=== PATIENT | male | born 1975 | race Caucasian/White ===

== ENCOUNTER → 2018-01-17 | Outpatient (REF) ==
[~2018-01-17] MED LIST: AMOX-362 PO; AZIT500T47 PO; HYDR-4309 PO; LIDO15SO2 PO; OXYC-373 PO; PROM-110 PO
== END ==
LOC: RESP 20:59
PROVIDERS: ATTEND Emergency Medicine
DX: G47.33 Obstructive sleep apnea (adult) (pediatric) (principal); G47.36 Sleep related hypoventilation in conditions classified elsewhere

== ENCOUNTER 2018-05-21 01:35 | Day surgery (SDC) | payer OTHER ==
[~2018-05-21] VITALS: Ht 162.6 cm; Wt 85.3 kg
[2018-05-21] MEDS ORDERED: GLYCOPYRROLATE 0.2MG/ML 1 ML INJ IVP ONE (06:45)
[2018-05-21 07:25] VITALS: BP 122/70
[2018-05-21] MEDS ORDERED: NORMOSOL R SOLN(*) 1000 ML BAG 1,000 ML IV PRN (07:50)
[2018-05-21] MEDS ORDERED: LIDOCAINE/SOD BICARB 8.4% SYR ID ONE (07:50)
[2018-05-21] MEDS ORDERED: PROPOFOL EMUL(*) 10MG/ML 20 ML 60 ML ONE (08:08)
[2018-05-21] MEDS ORDERED: LIDOCAINE MPF 1% 5 ML VIAL ONE (08:08)
[2018-05-21] MEDS ORDERED: PROPOFOL EMUL(*) 10MG/ML 20 ML 20 ML ONE (09:28)
[2018-05-21 09:38] VITALS: BP 102/61
--- NOTE | 2018-05-21 09:47 | Short(Outpt) Discharge Summary ---
Discharge Summary Reason for Hosp/Final Diag: (1) Blood per rectum Status: Chronic Hospital Course & Plan: EGD with biopsies and colonoscopy with polypectomy x3 completed without problems. (2) Epigastric pain Status: Chronic (3) Obstipation Status: Chronic (4) Gastroesophageal reflux disease Status: Chronic Departure Discharge to: Home, Self Care Discharge Instructions Home Meds No Active Prescriptions or Reported Meds Diet: Regular Activity: As Tolerated Special Instructions: Your upper endoscopy and colonoscopy were completed without problems. Your esophagus, stomach, and duodenum appeared normal. I biopsied your stomach to look for H.pylori and your duodenum to look for celiac disease. I removed 3 polyps from your colon. All of these were sent to pathology. My office will call you in the next couple of days to schedule a follow up appointment to see me back in my office to discuss all of these results. ALTAGRACIA ROQUE MD May 21, 2018 09:47
[2018-05-21 10:00] VITALS: BP 121/67
[2018-05-21 10:30] VITALS: BP 124/69
[2018-05-21 10:40] VITALS: BP 125/76
== END 2018-05-21 10:50 | disposition home or self-care (01) ==
LOC: OR 01:35
PROVIDERS: ATTEND Surgery
DX: D12.5 Benign neoplasm of sigmoid colon (principal); K63.5 Polyp of colon
CPT/HCPCS: 00811; 43239; 45385; 87077; 88305; J2001; J2704; J3490

== ENCOUNTER 2018-12-16 01:38 | Observation (INO) | payer OTHER ==
[2018-12-08 16:40] LABS: PLATELET COUNT, AUTOMATED 301 K/uL (150-450)
[~2018-12-16] VITALS: Ht 165.1 cm; Wt 81.6 kg
[2018-12-16] VITALS (9 sets, daily range): BP systolic 110–135; BP diastolic 63–84
[~2018-12-16 01:38] MED LIST changes: +HYDR-2966 PO; -HYDR-4309 PO; +HYDR-653 PO
[2018-12-16] MEDS ORDERED: CLINDAMYCIN(*) 600 MG/NS 50 ML 50 ML IVPB ONE (05:35)
[2018-12-16] MEDS ORDERED: LEVOFLOXACIN/D5W 750 MG/150 ML 150 ML IVPB ONE (05:35)
--- NOTE | 2018-12-16 09:20 | EKG ---
[place] [facility] [place] NAME: PAMELLA MCLEAN : [id number] MR: [id number] V: [id number] EXAM DATE: ORDERING PHYSICIAN: KOSTAS CRISTOBAL TECHNOLOGIST: KEHINDE Gan Reason : PRE-OP Blood Pressure : / mmHG Vent. Rate : 076 BPM Atrial Rate : 076 BPM P-R Int : 178 ms QRS Dur : 084 ms QT Int : 386 ms P-R-T Axes : 028 019 027 degrees QTc Int : 434 ms Normal sinus rhythm Normal ECG When compared with ECG of 02-SEP-2015 21:02, No significant change was found Confirmed by JOANNE KC ([id number]) on 12/16/2018 6:50:45 PM Referred By: STUART Confirmed By:JOANNE KC
[2018-12-16] MEDS ORDERED: DEXAMETHASONE SOD PHOS 10MG/ML ONE (10:06)
[2018-12-16] MEDS ORDERED: ONDANSETRON 4 MG/2 ML VIAL ONE (10:06)
[2018-12-16] MEDS ORDERED: PROPOFOL EMUL(*) 10MG/ML 20 ML 40 ML ONE (10:06)
[2018-12-16] MEDS ORDERED: BUPIVACAINE/EPI 0.5% 50ML VIAL INFIL ONE (10:07)
[2018-12-16] MEDS ORDERED: fentaNYL CITR 100 MCG/2 ML AMP ONE ×3 (10:38→13:05)
[2018-12-16] MEDS ORDERED: MIDAZOLAM 2 MG/2 ML VIAL IVP PRN (11:20)
[2018-12-16] MEDS ORDERED: FAMOTIDINE 20 MG TAB PO ONE (11:20)
[2018-12-16] MEDS ORDERED: LIDOCAINE/SOD BICARB 8.4% SYR ID ONE (11:20)
[2018-12-16] MEDS ORDERED: NORMOSOL R SOLN(*) 1000 ML BAG 1,000 ML IV PRN (11:20)
[2018-12-16] MEDS ORDERED: KETOROLAC 30 MG/ML VIAL ONE (11:37)
[2018-12-16] MEDS ORDERED: SUGAMMADEX SOD 200 MG/2 ML SDV ONE (11:51)
[2018-12-16] MEDS ORDERED: TRAM-420 PO (12:31)
--- NOTE | 2018-12-16 12:33 | Short(Outpt) Discharge Summary ---
Discharge Summary Reason for Hosp/Final Diag: (1) Right inguinal hernia Hospital Course & Plan: pr presented for hernia repair. he tolerated the procedure well. he will be discharged home when criteria met. Departure Discharge to: Home Discharge Instructions Home Meds Active Scripts Tramadol Hcl (TRAMADOL HCL) 50 Mg Tablet, 50 MG PO Q6H PRN for PAIN, #20 TAB Prov:EVARISTO COLEMAN 12/16/18 Reported Medications Hydrochlorothiazide (HYDROCHLOROTHIAZIDE) 25 Mg Tablet, 1 TAB PO QDAY, TAB 12/15/18 Diet: Regular Activity: No Heavy Lifting Special Instructions: no lifting more than 15 lbs for 3 wks. ok to shower tomorrow. take stool softeners while taking pain meds. follow up dr. hilario coleman 2 wks ([phone]). EVARISTO COLEMAN Dec 16, 2018 12:33
--- NOTE | 2018-12-16 12:36 | Post Operative Progress Note ---
Post Operative Progress Note Date: Dec 16, 2018 Time: 12:34 Surgeon: dr. destiny coleman Livestock Handler: none Anesthesia: gen, local dr. valles Pre-Op Diagnosis: right ing hernia Post-Op Diagnosis: same Findings: right ing hernia Procedure(s): robotic right ing hernia repair with mesh Specimen Removed:(May be N/A): n/a Complications: none Fluids: iv crystalloid Estimated Blood Loss: minimal EVARISTO COLEMAN Dec 16, 2018 12:35
[2018-12-16] MEDS ORDERED: traMADol 50 MG TAB PO ONE (14:40)
--- NOTE | 2018-12-16 15:45 | NUR ---
SPOKE WITH DR CRISTOBAL ABOUT PT'S O2 NEEDS, PT WILL NEED TO BE ADMITTED OVERNIGHT FOR OBSERVATION PER DR CRISTOBAL. DR CRISTOBAL TO CONSULT WITH DR DAVIDSON AND HAVE PT ADMITTED. NURSING SPLICING TECHNICIAN CONTACTED, ROOM NOT AVAILABLE YET, FLOOR WILL CONTACT US WHEN PT CAN BE TRANSFERRED, PT WILL BE HELD IN STEPDOWN UNTIL ROOM AVAILABLE.
[2018-12-16] MEDS ORDERED: ONDANSETRON 4 MG/2 ML VIAL IVP PRN (17:10)
[2018-12-16] MEDS ORDERED: NS(*) 0.9% 1000 ML BAG 1,000 ML IV SCH (17:10)
--- NOTE | 2018-12-16 18:31 | NUR ---
PT TRANSFERRED TO INPT ROOM 2274 VIA CART, AT BEDSIDE, ALL BELONGINGS WITH PT. PT AMBULATED TO BED FROM CART W/O DIFFICULTY. SITTING AT EDGE OF BED, REPORTS SITTING IS POSITION OF COMFORT AT THIS TIME. SBAR AND TRANSFER OF CARE TO VARUN AUGUSTIN.
[2018-12-16] MEDS: APAP/HYDROCODONE 325/7.5 TAB PO PRN ×2 (18:35→22:33)
[2018-12-16] MEDS: ALBUTEROL/IPRATROPIUM 3 ML NEB NEB SCH (20:15)
[2018-12-16] MEDS ORDERED: HYPROMELLOSE 0.4% LUB 15ML BTL OU PRN (20:15)
--- NOTE | 2018-12-16 20:33 | Hospitalist Consultation ---
History of Present Illness Requesting Physician Oneil Reason for Consult hypoxia History of Present Illness 43yo male with a h/o CYN and chronic tobacco use who has been persistently hypoxic after surgery. He denies any cp/sob/coryza/cough before surgery or now. He is supposed to be on a CPAP machine at night, but hasn't been able to find a mask that fits well. He smokes 4-5 cigarettes a day and has smoked for about 20 years. He has noted some bilateral eye burning and saw red blotches in the lower parts of both eyes after surgery. History Problems: (1) CYN (obstructive sleep apnea) Status: Chronic Home Meds Active Scripts Tramadol Hcl (TRAMADOL HCL) 50 Mg Tablet, 50 MG PO Q6H PRN for PAIN, #20 TAB Prov:EVARISTO DAVIDSON 12/16/18 Reported Medications Hydrochlorothiazide (HYDROCHLOROTHIAZIDE) 25 Mg Tablet, 1 TAB PO QDAY, TAB 12/15/18 Allergies: Coded Allergies: Penicillins (Verified Allergy, Intermediate, HIVES AND SHORTNESS OF BREATH, 05/14/18) Patient History: FH: diabetes mellitus MOTHER, , Age:74 FH: hypercholesterolemia FATHER FH: thyroid disease BROTHER OR SISTER Hx Smoking: Yes (4 CIGS A DAY) Smoking Status: Current: Every Day Smoker Exposure to Second Hand Smoke?: Yes Caffeine Intake: Coffee Caffeine/Cups Per Day: 1 Hx Alcohol Use: Yes Hx Substance Use Disorder: No Social Drug Use: Never Review of Systems All Systems Reviewed/Normal: Yes, Except as Noted Exam Vital Signs Vital Signs Date Time Temp Pulse Resp B/P (MAP) Pulse Ox O2 Delivery O2 Flow Rate FiO2 12/16/18 19:23 98.0 95 20 120/72 (88) 93 Nasal Cannula 1.5 General Appearance: Alert, Awake, No Acute Distress Eyes: Other (sclera inferiorly has ) Cardiovascular: Regular Rate and Rhythm Respiratory: Clear to Auscultation Extremities: No Edema Medical Decision Making Data Points Result Diagram: 12/16/18 0913 Assessment and Plan Problems: (1) Status post hernia repair Status: Acute Assessment & Plan: No chest pain/sob. No CV/pulmonary issues during surgery. He received about 2000cc of crystalloid intra-op. See below. (2) Hypoxia Status: Acute Assessment & Plan: No worrisome symptoms. Lungs clear. Secondary to CYN, chronic tobacco use, narcotics, abdominal surgery and recent anesthetics. He is only requiring 1 liter of O2. Will likely be able to wean off in the morning. He is to use the IS. Will get a CXR to rule out any infiltrates. (3) Subconjunctival hemorrhage of both eyes Status: Acute Assessment & Plan: Likely, had some minor trauma during surgery. Mild and inferior bilaterally. He reports mild burning. Will try some natural tears prn and follow. (4) CYN (obstructive sleep apnea) Status: Chronic Assessment & Plan: Chronic and not treated yet secondary to problems with getting masks that don't make him feel claustrophobic. Copies to: EVARISTO DAVIDSON ; Venous Thromboembolism Antithrombotics Is Pt On Any Antithrombotics?: No JOANNE KC MD Dec 16, 2018 20:33
--- NOTE | 2018-12-16 23:29 | RADIOLOGY IMAGING REPORT ---
[place]AC[place] [facility] [place] NAME: Donny Urias : 1975 MR: [id number] V: [id number] EXAM DATE: ORDERING PHYSICIAN: JOANNE KC TECHNOLOGIST: Location: [facility] [place] Patient: Donny Urias : 1975 Visit/Account:[id number] Date of Sevice: 12/16/2018 CHEST SINGLE AP 12/16/2018 20:12 hours. HISTORY: Hypoxia. COMPARISON: None. TECHNIQUE: Portable AP view of the chest. FINDINGS: Tubes/lines/hardware: None. Pulmonary/pleura: Lungs are clear. There is no pneumothorax or pleural effusion. Cardiomediastinal: Cardiac and mediastinal silhouettes are within normal limits. Bones/soft tissues: No acute osseous abnormality. Healed mid left clavicle fracture. The visible abdo men is normal. IMPRESSION: 1. No acute cardiopulmonary process. Report Dictated By: Bri Davis at 12/16/2018 11:23 PM Report E-Signed By: Bri Davis at 12/16/2018 11:25 PM WSN:[id number]
[2018-12-17 00:19] VITALS: BP 114/61
[2018-12-17 03:33] VITALS: BP 104/56
[2018-12-17] MEDS: APAP/HYDROCODONE 325/7.5 TAB PO PRN ×2 (03:33→07:52)
[2018-12-17] MEDS: ALBUTEROL/IPRATROPIUM 3 ML NEB NEB SCH (05:06)
[2018-12-17 07:46] VITALS: BP 121/77
--- NOTE | 2018-12-17 08:35 | Hospitalist Progress Note ---
Subjective Progress Notes Subjective No cp/sob. Off O2. Physical Exam Vital Signs Date Time Temp Pulse Resp B/P (MAP) Pulse Ox O2 Delivery O2 Flow Rate FiO2 12/17/18 07:56 92 Room Air 12/17/18 07:46 98.3 78 16 121/77 (92) 12/17/18 05:00 0.5 Intake and Output 12/17/18 07:00 Intake Total 2125 ml Balance 2125 ml Intake Oral 900 ml IV Total 1225 ml # Voids 1 General Appearance: Alert, Awake, No Acute Distress Result Diagram: 12/16/18 0913 Imaging CXR - 1. No acute cardiopulmonary process. Assessment and Plan Problems: (1) Hypoxia Status: Acute Assessment & Plan: No worrisome symptoms. Lungs clear. CXR normal. Secondary to CYN, chronic tobacco use, narcotics, abdominal surgery and recent anesthetics. He is now off O2 and doing well. (2) Status post hernia repair Status: Acute Assessment & Plan: No chest pain/sob. No CV/pulmonary issues during surgery. He received about 2000cc of crystalloid intra-op. See below. (3) Subconjunctival hemorrhage of both eyes Status: Acute Assessment & Plan: Likely, had some minor trauma during surgery. Mild and inferior bilaterally. He reports mild burning. Will try some natural tears prn and follow. (4) CYN (obstructive sleep apnea) Status: Chronic Assessment & Plan: Chronic and not treated yet secondary to problems with ge tting masks that don't make him feel claustrophobic. Exam Sepsis Risk: No Definite Risk JOANNE KC MD Dec 17, 2018 08:35
[2018-12-17] MEDS ORDERED: ENOXAPARIN 40 MG/0.4ML SYR SC SCH (09:00)
[2018-12-17 09:02] VITALS: BMI 29.9
--- NOTE | 2018-12-17 10:21 | General Surgery Progress Note ---
Subjective Progress Notes Subjective s/p hernia repair. pain controlled. no sob or chest pain. Physical Exam Vital Signs Date Time Temp Pulse Resp B/P (MAP) Pulse Ox O2 Delivery O2 Flow Rate FiO2 12/17/18 07:56 92 Room Air 12/17/18 07:46 98.3 78 16 121/77 (92) 12/17/18 05:00 0.5 Intake and Output 12/17/18 07:00 Intake Total 2125 ml Balance 2125 ml Intake Oral 900 ml IV Total 1225 ml # Voids 1 Cardiovascular: Other (reg rate) Respiratory: No Respiratory Distress GI: Other (abd soft) Result Diagram: 12/16/18 0913 Assessment and Plan Problems: (1) Right inguinal hernia Assessment & Plan: 12/16/18: pt presented for hernia repair. he tolerated the procedure well. he will be discharged home when criteria met. 12/17/18: doing well. no sob. d/c home when weaned off oxygen. Exam Sepsis Risk: No Definite Risk EVARISTO DAVIDSON Dec 17, 2018 10:21
--- NOTE | 2018-12-17 10:24 | Hospitalist Depart ---
Discharge Summary Reason for Hosp/Final Diag: (1) Right inguinal hernia Hospital Course & Plan: 12/16/18: pt presented for hernia repair. he tolerated the procedure well. he will be discharged home when criteria met. 12/17/18: doing well. no sob. d/c home when weaned off oxygen. Departure Weight (Pounds): 180 Result Diagram: 12/16/18 0913 Condition: Improved Discharge Instructions Home Meds Active Scripts Tramadol Hcl (TRAMADOL HCL) 50 Mg Tablet, 50 MG PO Q6H PRN for PAIN, #20 TAB Prov:EVARISTO RIGGS 12/16/18 Reported Medications Hydrochlorothiazide (HYDROCHLOROTHIAZIDE) 25 Mg Tablet, 1 TAB PO QDAY, TAB 12/15/18 Diet: Regular Activity: No Heavy Lifting Special Instructions: No lifting more than 15 lbs for 3 weeks. Ok to shower tomorrow. Take stool softeners while taking pain meds. Follow up Dr. Avery Riggs in 2 weeks ([phone]). Venous Thromboembolism Antithrombotics Is Pt On Any Antithrombotics?: EVARISTO Hoskins Dec 17, 2018 10:24
[2018-12-17 14:29] VITALS: Ht 165.1 cm; Wt 81.6 kg
--- NOTE | 2018-12-18 08:45 | OPERATIVE REPORT 1 ---
EVENT DATE: December 16, 2018 SURGEON: Oliver Riggs MD ANESTHESIOLOGIST: Ruslan Alvarez MD ANESTHESIA: General and local. PERSONNEL RESEARCH SCIENTIST: None. PREOPERATIVE DIAGNOSIS Right inguinal hernia. POSTOPERATIVE DIAGNOSIS Right inguinal hernia. PROCEDURE PERFORMED Robotic right inguinal hernia repair with mesh. FLUIDS IV crystalloids. ESTIMATED BLOOD LOSS Minimal. SPECIMENS None. COMPLICATIONS None. INDICATIONS This is a 43-year old male with discomfort in his right groin. On physical exam, patient is found to have a right inguinal hernia. Risks and benefits of the procedure were explained and consent was signed. DESCRIPTION OF PROCEDURE The patient was taken to the operating room and placed in the supine position. General anesthesia was administered per the Anesthesia team. The patient was prepped and draped in normal sterile fashion. Local anesthesia was injected into the dermis above the umbilicus and a small incision was made. Umbilical stump was grasped and elevated. Veress needle was inserted. Pneumoperitoneum was achieved. Veress needle was removed. An 8 mm port was placed. After injecting local analgesia and under direct vision, an 8 mm right sided port and an 8 mm left sided port were placed. The robot was docked. I inspected the abdomen. There was no injury upon entry. Patient had a direct right inguinal hernia. A peritoneal flap was created with scissors. This was taken down below the level of the ileopubic tract. Earnest's ligament was identified. The hernia was reduced. This was a medium sized direct inguinal hernia. I then placed a piece of 15 x 10 ProGrip right sided mesh. This covered the defect with several centimeters of overlap in each direction. I confirmed that the mesh was laying flat. Care had been taken to protect the cord structures in the inferior epigastric vessels during the dissection. The peritoneal flap was reapproximated with a running absorbable V-Loc stitch. Hemostasis was assured. Robot was undocked. Tap-Loc was placed. Ports were removed under direct vision. Pneumoperitoneum was released. Final port was removed. All skin incisions were closed with 4-0 Monocryl subcuticular stitches. More local analgesia was injected. Appropriate dressings were applied. The patient tolerated the procedure well. There were no complications. [facility]
[2018-12-19] MEDS ORDERED: TRAM-420 PO (17:00)
== END 2018-12-17 10:23 | disposition home or self-care (01) ==
LOC: OR 01:38 → MED 18:25
PROVIDERS: ADMIT Surgery; ATTEND Surgery
DX: K40.90 Unilateral inguinal hernia, without obstruction or gangrene, not specified as recurrent (principal); E78.5 Hyperlipidemia, unspecified; G47.30 Sleep apnea, unspecified; F17.200 Nicotine dependence, unspecified, uncomplicated; I10 Essential (primary) hypertension
CPT/HCPCS: 36415; 49650; 71045; 85025; 93005; 94640; C1781; G0378; J1100; J1650; J1885; J1956; J2250; J2405; J2704; J3010; J3490; J7620; S2900; 82310; 82374; 82435; 82565; 82947; 84132; 84295; 84520; 96372

== ENCOUNTER → 2019-01-29 | Outpatient (CLI) | payer OTHER ==
[2018-12-17 14:29] VITALS: BMI 29.9
[~2019-01-29] MED LIST changes: +CIPR-214 PO; +IOPAMIDOL 76% 150 ML INFUS BTL 150 ML ONE; +METR-1 PO; +TRAM-420 PO
--- NOTE | 2019-01-29 17:39 | RADIOLOGY IMAGING REPORT ---
FACILITY: [facility] - [place] PATIENT NAME: Donny Urias : 1975 MR: [id number] V: [id number] EXAM DATE: ORDERING PHYSICIAN: EVARISTO DAVIDSON TECHNOLOGIST: Location: [facility] Patient: Donny Urias : 1975 Visit/Account:[id number] Date of Sevice: 01/29/2019 CT ABDOMEN PELVIS W/ CON HISTORY: abdominal bloating TECHNIQUE: Axial images were obtained through the abdomen and pelvis with intravenous contrast . One of the following dose optimization techniques was utilized in the performance of this exam: automate d exposure control; adjustment of the mA and/or kv according to patient size; or use of iterative rec onstruction technique. Specific details can be referenced in the facility's radiology CT exam operati onal policy. CONTRAST: 75 cc of Isovue-370 COMPARISON: None. FINDINGS: Visualized lung bases: Right lower lobe calcified granuloma. Hepatobiliary: Negative. Spleen: Negative. Adrenals: Negative. Pancreas: Negative. Kidneys/ureters/bladder: Negative. Bowel/peritoneum/mesentery: Normal appendix. Colonic diverticulosis with minimal inflammatory change at the descending colon (series 2 image 78). No bowel obstruction, free air or ascites. Vessels: Negative. Lymph nodes: Negative. Pelvic genitourinary: Negative. Bones/body wall: Fat and fluid within the right inguinal ring. Soft tissue stranding at the cephalad aspect of the right inguinal ring. Other findings: None significant IMPRESSION: 1. Findings consistent with uncomplicated diverticulitis of the descending colon. 2. Fat and fluid within the right inguinal ring with soft tissue stranding at its cephalad aspect. Re commend clinical correlation for prior inguinal hernia repair Report Dictated By: Clemente King MD at 01/29/2019 4:57 PM Report E-Signed By: Clemente King MD at 01/29/2019 5:35 PM WSN:[id number]
== END ==
LOC: CT 01:40
PROVIDERS: ATTEND Surgery
DX: K57.32 Diverticulitis of large intestine without perforation or abscess without bleeding (principal)
CPT/HCPCS: 36415; 74177; 82565; Q9967